=== PATIENT | female | born 1960 | race Caucasian/White ===

== ENCOUNTER 2016-07-06 14:15 | Emergency (ER) | payer BC ==
[2016-07-06 14:25] VITALS: TEMP 98.2
--- NOTE | 2016-07-06 14:57 | EDPHY ---
H & P Stated Complaint: palpitations, right arm pain., left eye "floaters" HPI/ROS: HPI CHIEF COMPLAINT: Palpitations, pressure throughout my entire body, right arm pain, left eye floaters HISTORY OF PRESENT ILLNESS: This patient very pleasant 56-year-old female she presents emergency room by private vehicle she is visiting [facility] from [place] she has been out here since the of the month around 20 some days. She states approximately a week ago or last Monday she developed flushing in her face and palpitations after she was experiencing hot yoga. Patient tells me that she was undergoing hot yoga she got very flushed in her face, got overheated lightheaded and nauseated she had to stop going to the hot yoga. She states since then approximately week ago she has had ongoing palpitations. She denies chest pain. However on Monday she went for hike with a friend she was going up a steady incline and developed pressure all over her whole body. She denies chest pain. She did have some associated shortness of breath with this. No nausea no vomiting no diaphoresis. No chest pain. She states that her right arm became pressure eyes as well as her entire body. She also tells me she had floaters out of her left eye. This started 2 days ago. No loss of vision. No eye pain, no headache, no numbness or tingling or focal weakness. She states she was trying to work at a computer today and felt her whole body become pressurized she developed worsening pressure in right arm. She became concerned and presented to the emergency room. She does tell me this is her 1st time to [place] however she has been here for over 2 weeks. Past Medical History: Ismael's thyroiditis Past Surgical History: No recent significant surgical history Social History: Denies daily use of drugs alcohol tobacco products lives in [place] Family History: Noncontributory ROS REVIEW OF SYSTEMS: A comprehensive 10 point review of systems is otherwise negative aside from elements mentioned in the history of present illness. Exam Constitutional appears well nontoxic, triage nursing summary reviewed, vital signs reviewed, awake/alert. (VSS) Eyes normal conjunctivae and sclera, EOMI, PERRLA. On eye exam left eye: Anterior chambers clear, extraocular movements intact, pupils equal round react to light, posterior eye exam without dilatation appears normal. Visual acuity reviewed and normal. HENT normal inspection, atraumatic, moist mucus membranes, no epistaxis, neck supple/ no meningismus, no raccoon eyes. Respiratory clear to auscultation bilaterally, normal breath sounds, no respiratory distress, no wheezing. Cardiovascular rate normal, regular rhythm, no murmur, no edema, distal pulses normal. Gastrointestinal soft, non-tender, no rebound, no guarding, normal bowel sounds, no distension, no pulsatile mass. Genitourinary no CVA tenderness. Musculoskeletal no midline vertebral tenderness, full range of motion, no calf swelling, no tenderness of extremities, no meningismus, good pulses, neurovascularly intact. Skin pink, warm, & dry, no rash, skin atraumatic. Neurologic awake, alert and oriented x 3, AAOx3, moves all 4 extremities equally, motor intact, sensory intact, CN II-XII intact, normal cerebellar, normal vision, normal speech. Psychiatric normal mood/affect. Heme/Lymph/Immune no lymphadenopathy. Differential Diagnosis: Includes but is not limited to in a particular order thyroid abnormality, doubt acute coronary syndrome, electrolyte disturbance, cardiac arrhythmia, infection Medical Decision Making: Plan for this patient had an IV established be placed on full front desk monitor, will check blood work including electrolytes and thyroid, she will have an EKG and cardiac marker and D-dimer she also had a chest x-ray. Presentation is not consistent with acute coronary syndrome she is complaining of pressure all over entire body right arm pain, left eye floaters. Re-evaluation: EKG interpretation by me on record in [employer] system. Impression time of EKG 1500, this is sinus rhythm rate of 72, borderline T-wave abnormality seen in lead 3 and AVF otherwise unremarkable EKG Time of re-evaluation: The patient is resting comfortably here 1534: Resting comfortably no complaints at this time. I have updated this patient positive D- dimer need for CT angiogram chest. ED x-ray chest one view: This is negative for acute cardiopulmonary disease. Image interpreted by myself. 1724: CT scan of the angiogram of the chest The results of the study are negative for acute pulmonary embolism. The study was read by Dr. Okeefe. I viewed the images myself on the PACS system. EKG interpretation by me on record in [employer] system. Impression time of EKG 1743, this is sinus rhythm rate of 75, a Q-waves noted in V1 V2 similar to previous EKG otherwise unremarkable EKG do not appreciate any other signs of acute ischemia. 1819: Re-evaluation at this time this patient is resting comfortably no chest pain. She had a repeat EKG repeat troponin, the troponin is negative. Her CT angiogram is unremarkable for anything acute, blood work has been reviewed is reassuring. Her D-dimer was elevated but her CT angiogram did not show pulmonary embolism. After IV contrast for the CT angiogram she did tell me that she felt a little short of breath and had some wheezing however it has resolved. However this time I am going to give her DuoNeb breathing treatment and re-evaluate her. Monitor for further signs of reaction. 190: re-evaluation at this time this patient is resting comfortably no acute distress. She does feel better after DuoNeb breathing treatment she feels as if she is moving much better air. I will prescribe albuterol inhaler. On reexamination her lungs they are clear good air movement, heart rate is appropriate, pulse ox 98% on room air, heart rate 79, blood pressure reviewed and normal. Her workup has been extensive in the emergency room for palpitations and a pressure sensation throughout her entire body not specifically her chest, also eye floaters which have resolved. I do not see any evidence of retinal detachment on eye exam or disturbance on eye exam. I will refer her out patient to Cardiology for palpitations, and ophthalmology for eye floaters. She has no loss of vision she has no chest pain she has no shortness of breath she is resting comfortably. I do feel that she will benefit from albuterol inhaler for possible reactive airway disease however it is noted during the emergency room visit she had no hypoxia no wheezing no respiratory distress. She did feel slightly short of breath after she came back from CT scan with IV contrast but there has been no evidence of acute reaction. Patient does understand strict return precautions understands she develops chest pain shortness of breath high fever vomiting or visual disturbance she needs to return to the emergency room. Source: Patient - Personal History Current Tetanus/Diphtheria Vaccine: Unsure Current Tetanus Diphtheria and Acellular Pertussis (TDAP): Unsure - Medical/Surgical History Hx Asthma: No Hx Chronic Respiratory Disease: No Hx Diabetes: No Hx Cardiac Disease: No Hx Renal Disease: No Hx Cirrhosis: No Hx Alcoholism: No Hx HIV/AIDS: No Hx Splenectomy or Spleen Trauma: No Other PMH: ismael - Social History Smoking Status: Never smoked Constitutional: Initial Vital Signs Temperature (C) 36.8 C 07/06/16 14:22 Heart Rate 91 07/06/16 14:22 Respiratory Rate 18 07/06/16 14:22 Blood Pressure 126/86 H 07/06/16 14:22 O2 Sat (%) 95 07/06/16 14:22 O2 Delivery Mode Room Air O2 (L/minute) 2 Allergies/Adverse Reactions: ibuprofen Allergy (Verified 07/06/16 15:10) Home Medications: Medication Instructions Recorded Naturthyroid 07/06/16 Medical Decision Making - Data Points Laboratory Results: Laboratory Results 07/06/16 15:17 07/06/16 15:17 07/06/16 07/06/16 07/06/16 17:40 17:02 15:17 WBC RBC Hgb Hct MCV MCH MCHC RDW Plt Count MPV Neut % (Auto) Lymph % (Auto) [place] % (Auto) Eos % (Auto) Baso % (Auto) Nucleat RBC Rel Count Absolute Neuts (auto) Absolute Lymphs (auto) Absolute Monos (auto) Absolute Eos (auto) Absolute Basos (auto) Absolute Nucleated RBC Immature Gran % Immature Gran # PT INR APTT D-Dimer Sodium 140 mEq/L mEq/L (134-144) Potassium 4.3 mEq/L mEq/L (3.5-5.2) Chloride 107 mEq/L mEq/L (97-110) Carbon Dioxide 22 mEq/l mEq/l (22-31) Anion Gap 11 mEq/L mEq/L (8-16) BUN 15 mg/dL mg/dL (7-23) Creatinine 1.1 mg/dL H mg/dL (0.6-1.0) Estimated GFR 51 Glucose 92 mg/dL mg/dL (70-100) Calcium 10.0 mg/dL mg/dL (8.5-10.4) Magnesium 2.1 mg/dL mg/dL (1.6-2.3) Total Bilirubin 0.7 mg/dL mg/dL (0.1-1.4) Conjugated Bilirubin 0.2 mg/dL mg/dL (0.0-0.5) Unconjugated Bilirubin 0.5 mg/dL mg/dL (0.0-1.1) AST 16 IU/L IU/L (14-46) ALT 29 IU/L IU/L (9-52) Alkaline Phosphatase 57 IU/L IU/L (38-126) Creatine Kinase 23 IU/L IU/L (0-156) CK-MB (CK-2) Fraction 0.24 ng/mL ng/mL (0-3.19) Troponin I < 0.012 ng/mL ng/mL < 0.012 ng/mL ng/mL (0-0.034) (0-0.034) NT-Pro-B Natriuret Pep 33 pg/mL pg/mL (0-125) Total Protein 7.0 g/dL g/dL (6.3-8.2) Albumin 4.2 g/dL g/dL (3.5-5.0) Lipase 141.0 IU/L IU/L (23-300) TSH 2.890 uIU/mL uIU/mL (0.465-4.680) Urine Color YELLOW Urine Appearance CLEAR Urine pH 5.0 (5.0-7.5) Ur Specific [place] 1.014 (1.002-1.030) Urine Protein NEGATIVE (NEGATIVE) Urine Ketones TRACE H (NEGATIVE) Urine Blood NEGATIVE (NEGATIVE) Urine Nitrate NEGATIVE (NEGATIVE) Urine Bilirubin NEGATIVE (NEGATIVE) Urine Urobilinogen NEGATIVE EU EU (0.2-1.0) Ur Leukocyte Esterase NEGATIVE (NEGATIVE) Ur Culture Indicated? NOT INDICATED (NI) Urine Glucose NEGATIVE (NEGATIVE) 07/06/16 07/06/16 15:17 15:17 WBC 7.29 10^3/uL 10^3/uL (3.80-9.50) RBC 4.64 10^6/uL 10^6/uL (4.18-5.33) Hgb 14.8 g/dL g/dL (12.6-16.3) Hct 43.1 % % (38.0-47.0) MCV 92.9 fL fL (81.5-99.8) MCH 31.9 pg pg (27.9-34.1) MCHC 34.3 g/dL g/dL (32.4-36.7) RDW 12.8 % % (11.5-15.2) Plt Count 263 10^3/uL 10^3/uL (150-400) MPV 10.4 fL fL (8.7-11.7) Neut % (Auto) 63.1 % % (39.3-74.2) Lymph % (Auto) 26.5 % % (15.0-45.0) [place] % (Auto) 6.3 % % (4.5-13.0) Eos % (Auto) 3.0 % % (0.6-7.6) Baso % (Auto) 0.8 % % (0.3-1.7) Nucleat RBC Rel Count 0.0 % % (0.0-0.2) Absolute Neuts (auto) 4.60 10^3/uL 10^3/uL (1.70-6.50) Absolute Lymphs (auto) 1.93 10^3/uL 10^3/uL (1.00-3.00) Absolute Monos (auto) 0.46 10^3/uL 10^3/uL (0.30-0.80) Absolute Eos (auto) 0.22 10^3/uL 10^3/uL (0.03-0.40) Absolute Basos (auto) 0.06 10^3/uL 10^3/uL (0.02-0.10) Absolute Nucleated RBC 0.00 10^3/uL 10^3/uL (0-0.01) Immature Gran % 0.3 % % (0.0-1.1) Immature Gran # 0.02 10^3/uL 10^3/uL (0.00-0.10) PT 12.7 SEC SEC (12.0-15.0) INR 0.96 (0.83-1.16) APTT 31.8 SEC SEC (23.0-38.0) D-Dimer 0.98 ug/mLFEU H ug/mLFEU (0.00-0.50) Sodium Potassium Chloride Carbon Dioxide Anion Gap BUN Creatinine Estimated GFR Glucose Calcium Magnesium Total Bilirubin Conjugated Bilirubin Unconjugated Bilirubin AST ALT Alkaline Phosphatase Creatine Kinase CK-MB (CK-2) Fraction Troponin I NT-Pro-B Natriuret Pep Total Protein Albumin Lipase TSH Urine Color Urine Appearance Urine pH Ur Specific [place] Urine Protein Urine Ketones Urine Blood Urine Nitrate Urine Bilirubin Urine Urobilinogen Ur Leukocyte Esterase Ur Culture Indicated? Urine Glucose Medications Given: Discontinued Medications Albuterol/Ipratropium (Duoneb) 3 ml IH EDNOW ONE Stop: 07/06/16 18:19 Last Admin: 07/06/16 18:33 Dose: 3 ml Aspirin (Aspirin) 324 mg PO EDNOW ONE Stop: 07/06/16 15:08 Last Admin: 07/06/16 15:15 Dose: 324 mg Sodium Chloride (Ns) 1,000 mls @ 0 mls/hr IV ONCE ONE PRN Reason: Wide Open Stop: 07/06/16 15:08 Last Admin: 07/06/16 15:19 Dose: 1,000 mls Departure - Departure Disposition: Home, Routine, Self-Care Clinical Impression: Heart palpitations, Vitreous floaters of left eye Condition: Good Instructions: Palpitations (ED) Additional Instructions: 1. Return emergency room immediately if he develops worsening symptoms questions or concerns. 2. please stay well-hydrated. 3. I do recommend that he follow up with Cardiology about your palpitations. I provided a referral for you. Call and make an appointment. 4. Keep track of her blood pressure over the next week take it twice a day at the same time and recorded. If you have a high readings over follow up with her primary care doctor about this. If you are extremely concerned about a return emergency room. Referrals: ALBINO COLUNGA [Other] - As per Instructions Valentino Garza MD [Medical Doctor] - As per Instructions Michelle Forte MD [Non Staff Provider (MD)] - As per Instructions
--- NOTE | 2016-07-06 15:02 | CPEKG ---
Heart Rate: 72 RR Interval: 833 P-R Interval: 168 QRSD Interval: 72 QT Interval: 380 QTC Interval: 416 P [place]: 21 QRS [place]: 37 T Wave [place]: -3 EKG Severity - ABNORMAL ECG - EKG Impression: SINUS RHYTHM EKG Impression: CONSIDER ANTEROSEPTAL INFARCT EKG Impression: BORDERLINE T ABNORMALITIES, INFERIOR LEADS Electronically Signed By: Kirill Flor 06-Jul-2016 22:46:52
[2016-07-06] MEDS ORDERED: NS 1,000 ML IV ONE (15:07)
[2016-07-06] MEDS ORDERED: ASPIRIN 81 MG CHEWABLE TAB PO ONE (15:07)
[2016-07-06 15:26] LABS: % IMMATURE GRANULYOCYTES 0.3 % (0.0-1.1); ABSOLUTE IMMATURE GRANULOCYTES 0.02 10^3/uL (0.00-0.10); ADD DIFF? NO; ADD MORPH? NO; ADD SCAN? NO; ATYPICAL LYMPHOCYTE FLAG 10 (0-99); FRAGMENT RBC FLAG 0 (0-99); HEMATOCRIT 43.1 % (38.0-47.0); HEMOGLOBIN 14.8 g/dL (12.6-16.3); LEFT SHIFT FLG 0 (0-99); LIPEMIA HEMOLYSIS FLAG 90 (0-99); MEAN CELL HEMOGLOBIN 31.9 pg (27.9-34.1); MEAN CELL HEMOGLOBIN CONCENTR. 34.3 g/dL (32.4-36.7); MEAN CELL VOLUME 92.9 fL (81.5-99.8); MEAN PLATELET VOLUME 10.4 fL (8.7-11.7); PLATELET CLUMPS FLAG 0 (0-99); PLATELET COUNT 263 10^3/uL (150-400); RED BLOOD CELL COUNT 4.64 10^6/uL (4.18-5.33); RED CELL DISTRIBUTION WIDTH 12.8 % (11.5-15.2)
[2016-07-06 15:37] LABS: APTT 31.8 SEC (23.0-38.0); INR 0.96 (0.83-1.16); PROTIME(PATIENT) 12.7 SEC (12.0-15.0)
[2016-07-06 15:40] LABS: ALANINE AMINOTRANSFERASE 29 IU/L (9-52); ALBUMIN 4.2 g/dL (3.5-5.0); ALKALINE PHOSPHATASE 57 IU/L (38-126); ANION GAP 11 mEq/L (8-16); ASPARTATE AMINOTRANSFERASE 16 IU/L (14-46); BILIRUBIN,TOTAL 0.7 mg/dL (0.1-1.4); BILIRUBIN-CONJUGATED 0.2 mg/dL (0.0-0.5); BILIRUBIN-UNCONJUGATED 0.5 mg/dL (0.0-1.1); CARBON DIOXIDE 22 mEq/l (22-31); CHLORIDE 107 mEq/L (97-110); CREATININE 1.1 mg/dL (0.6-1.0); GLOMERULAR FILTRATION RATE 51; GLUCOSE 92 mg/dL (70-100); MAGNESIUM 2.1 mg/dL (1.6-2.3); POTASSIUM 4.3 mEq/L (3.5-5.2); SODIUM 140 mEq/L (134-144)
[2016-07-06 15:52] LABS: CREATINE KINASE-MB FRACTION 0.24 ng/mL (0-3.19); TROPONIN I < 0.012 ng/mL (0-0.034)
[2016-07-06] MEDS ORDERED: IOPAMIDOL (ISOVUE 370) 100 ML BTL IV ONE ×2 (16:18→16:19)
[2016-07-06 17:15] LABS: COLOR YELLOW; LEUKOCYTE ESTERASE,URINE NEGATIVE (NEGATIVE); NITRITE,URINE NEGATIVE (NEGATIVE)
--- NOTE | 2016-07-06 17:46 | CPEKG ---
Heart Rate: 75 RR Interval: 800 P-R Interval: 192 QRSD Interval: 70 QT Interval: 384 QTC Interval: [address]: 25 EKG Severity - ABNORMAL ECG - EKG Impression: SINUS RHYTHM EKG Impression: LEFT ATRIAL ABNORMALITY EKG Impression: CONSIDER ANTEROSEPTAL INFARCT Electronically Signed By: Kirill Flor 06-Jul-2016 22:46:52
[2016-07-06] MEDS ORDERED: IPRATROPIUM/ALBUTEROL 3 ML DEYVIAL IH ONE (18:18)
[2016-07-06 19:17] VITALS: BP 127/75; PULSE 84; RESP 18; O2SAT 92
== END 2016-07-06 19:15 | disposition home or self-care (01) ==
DX: R00.2 Palpitations (principal); H43.392 Other vitreous opacities, left eye
CPT/HCPCS: Q9967